=== PATIENT | female | born 1985 | race African-American/Black ===

== ENCOUNTER 2016-11-14 00:32 | Emergency (ER) | payer OTHER ==
[~2016-11-14 00:32] MED LIST: ADVIL200 M1 PO; ADVIL200 M3 PO; BACTRIM 400-801 EAC1 PO; BACTRIM DS TAB1 EAC2 PO; CEPHALEXIN500 M PO; CIPRO500 M2 PO; CIPRO500 MG PO; COLACE100 M1 PO; COLACE100 MG PO; CYCLOBENZAPRINE10 M1 PO; DEPO-PROVERA; DICLOFENAC SODI75 MG PO; FAMOTIDINE20 M1 PO; FIORICET1 TA1 PO; FLEXERIL10 MG PO; HYDROCODON-ACE1 EA17 PO; IBUPROFEN600 M1 PO; IBUPROFEN600 MG PO; IUD; LOPERAMIDE2 M2 PO; MAGNESIUM CITR296 M1 PO; MOTRIN600 MG PO; MOTRIN800 MG PO; MULTIVITAMIN1 TAB PO; NAPROXEN500 M1 PO; NO HOME MEDICATION XX; NO HOME MEDS; NORCO 5-325 TA1 EACH PO; NORCO 5/325 TAB1 TAB PO; NORCO 7.5/325 T1 TAB PO; OXYCODONE HCL5 MG PO; PERCOCET 5/3251 TAB PO; PRENATAL1 EACH PO; TRAMADOL HCL50 MG PO; TRIPNIP TOP; TYLENOL W/CODEI1 TAB PO; TYLENOL650 MG PO; ULTRAM50 MG PO; VICODIN 5/500 T1 TAB PO; VISTARIL25 MG PO; ZOFRAN ODT4 MG PO; ZOFRAN4 MG PO; no meds
[2016-11-14 01:22] LABS: URINE BILIRUBIN NEGATIVE (NEG); URINE BLOOD NEGATIVE (NEG); URINE GLUCOSE (UA) NEGATIVE (NEG); URINE KETONE NEGATIVE (NEG); URINE LEUKOCYTE ESTERASE POSITIVE (NEG); URINE NITRITE NEGATIVE (NEG); URINE PROTEIN NEGATIVE (NEG)
[2016-11-14 01:23] LABS: URINE APPEARANCE HAZY; URINE COLOR YELLOW
[2016-11-14 01:28] LABS: URINE BACTERIA 2+; URINE RBC 0 /[HPF] (0-5)
[2016-11-14] MEDS ORDERED: CIPRO500 M2 PO (02:01)
== END 2016-11-14 02:06 ==
LOC: EDMED 00:32
PROVIDERS: Emergency Medicine
DX: R10.30 Lower abdominal pain, unspecified (principal); R11.0 Nausea; Z88.0 Allergy status to penicillin; Z90.721 Acquired absence of ovaries, unilateral
CPT/HCPCS: J1885

== ENCOUNTER 2017-01-25 03:32 | Emergency (ER) | payer OTHER ==
[2017-01-25 04:22] LABS: URINE BILIRUBIN NEGATIVE (NEG); URINE BLOOD LARGE (NEG); URINE GLUCOSE (UA) NEGATIVE (NEG); URINE KETONE NEGATIVE (NEG); URINE LEUKOCYTE ESTERASE POSITIVE (NEG); URINE NITRITE NEGATIVE (NEG); URINE PROTEIN SMALL (NEG)
[2017-01-25 04:27] LABS: URINE APPEARANCE SL CLOUDY; URINE COLOR YELLOW
[2017-01-25 04:28] LABS: BASO % 0.2 % (0-2); EOSINOPHIL ABSOLUTE COUNT 0.1 tho/cmm (0.0-0.7); HCT-HEMATOCRIT 35.3 % (34.0-49.0); HGB-HEMOGLOBIN 11.6 gm/dl (12.0-15.5); IMMATURE GRANULOCYTES ABSOLUTE 0.02 tho/cmm (0-0.03); IMMATURE GRANULOCYTES PERCENT 0.3 % (0-0.3); LYMPH % 42.9 % (20-45); LYMPH ABSOLUTE COUNT 2.7 tho/cmm (0.8-4.5); MCH (MEAN CORPUSCULAR HGB) 28.6 pg (28.0-32.0); MCHC MEAN CORPUSCULAR HGB CONC 32.9 % (32.0-36.0); MCV (MEAN CELL VOLUME) 87.2 fl (82.0-96.0); MEAN PLATELET VOLUME 10.5 cmc (9.4-12.4); MONO % 7.2 % (0-12); MONOCYTE ABSOLUTE COUNT 0.5 tho/cmm (0.0-1.2); NEUTROPHILS % 47.4 % (40-80); PLATELET COUNT 304 tho/cmm (150-450); RED BLOOD COUNT 4.05 mil/cmm (4.00-5.20); RED CELL DISTRIBUTION WIDTH 13.8 % (12.4-16.4); WHITE BLOOD COUNT 6.4 tho/cmm (4.0-10.0)
[2017-01-25 04:41] LABS: PREGNANCY-SERUM NEGATIVE (NEGATIVE)
[2017-01-25 04:45] LABS: ALB/GLOB RATIO 0.7 (0.8-2.0); ALBUMIN 3.1 g/dl (3.5-5.0); ALKALINE PHOSPHATASE 56 U/L (33-138); ALT/SGPT 14 U/L (12-78); ANION GAP 11 mmol/L (0-20); AST/SGOT 15 U/L (10-40); BILIRUBIN,TOTAL 0.2 mg/dl (0-1.5); BLOOD UREA NITROGEN 12 mg/dl (6-24); CALCIUM 8.4 mg/dl (8.5-10.5); CARBON DIOXIDE-VENOUS 29 mmol/L (22-32); CHLORIDE 102 mmol/l (96-110); CREATININE 0.75 mg/dl (0.50-1.10); GLUCOSE 104 mg/dL (70-110); LIPASE 89 U/L (73-393); POTASSIUM 3.7 mmol/L (3.7-5.1); SODIUM 138 mmol/L (135-145); eGFR VALUE FOR BLACK >90 mL/Min
== END 2017-01-25 05:29 ==
LOC: EDMED 03:32
PROVIDERS: Emergency Medicine
DX: R10.32 Left lower quadrant pain (principal); G89.29 Other chronic pain
CPT/HCPCS: J1885; J2405; J7030